=== PATIENT | female | born 1935 | race Caucasian/White ===

== ENCOUNTER 2016-10-14 13:58 | Emergency (ER) | payer MEDICARE, BC ==
[~2016-10-14] VITALS: Ht 154.9 cm; Wt 53.2 kg
[2016-10-14 16:01] LABS: HEMOGLOBIN 13.2 g/dL (11.7-16.4)
[2016-10-14 16:10] LABS: ASPARTATE AMINO TRANSFERASE 26 U/L (15-37); BLOOD UREA NITROGEN 17 mg/dL (7-18)
[2016-10-14 16:48] VITALS: BP 134/87
== END 2016-10-14 17:10 | disposition home or self-care (01) ==
LOC: ED 17:04
DX: L20.84 Intrinsic (allergic) eczema (principal); I10 Essential (primary) hypertension; Z86.718 Personal history of other venous thrombosis and embolism
CPT/HCPCS: 36415; 80053; 85025; 85610

== ENCOUNTER → 2017-05-13 | Outpatient (CLI) | payer MEDICARE, BC | END | disposition home or self-care (01) | LOC: CVU 11:58 | PROVIDERS: ATTEND Internal Medicine Cardiovascular Disease | DX: I08.1 Rheumatic disorders of both mitral and tricuspid valves (principal); I11.9 Hypertensive heart disease without heart failure; I83.813 Varicose veins of bilateral lower extremities with pain; E78.5 Hyperlipidemia, unspecified; Z86.718 Personal history of other venous thrombosis and embolism | CPT/HCPCS: 93306; 93970 ==

== ENCOUNTER → 2018-09-23 | Outpatient (CLI) | payer MEDICARE, BC | END | disposition home or self-care (01) | LOC: CFH 13:31 | PROVIDERS: ATTEND Obstetrics & Gynecology Female Pelvic Medicine and Reconstructive Surgery | DX: R92.2 Inconclusive mammogram (principal); N64.9 Disorder of breast, unspecified | CPT/HCPCS: 76377; 76642 ==

== ENCOUNTER 2019-02-07 08:36 | Emergency (ER) | payer MEDICARE, BC ==
[~2019-02-07] VITALS: Ht 157.5 cm; Wt 53.0 kg
--- NOTE | 2019-02-07 09:50 | NUR ---
TO ROOM FROM LOBBY. NAD/
--- NOTE | 2019-02-07 10:05 | NUR ---
assumed care of pt. attempted to enter room to assess pt, pt staets that she needs to use the bathroom. pt ambulated to BR without difficulty
--- NOTE | 2019-02-07 10:20 | NUR ---
pt c/o L foot pain after dropping a frozen sweet potato on it yesterday. pt states that she dropped it on a bunion on her foot by accident. pt hsa swelling to R foot below great toe. no open wounds noted. pt ambulatory. hx of mulitple DVT. CMS of R foot intact
[2019-02-07] MEDS ORDERED: WARF2.5T PO (10:26)
[2019-02-07] MEDS ORDERED: METO1TAB33 PO (10:26)
[2019-02-07] MEDS ORDERED: WARF5TAB PO (10:26)
[2019-02-07] MEDS ORDERED: AMLO10TA8 PO (10:26)
[2019-02-07] MEDS ORDERED: LOSA100T14 PO (10:26)
[2019-02-07] MEDS ORDERED: ATOR10TA9 PO (10:27)
--- NOTE | 2019-02-07 10:27 | NUR ---
med rec complete. pt reports that she also takes [id number] IU Vit D but there is not option for that on the med list
--- NOTE | 2019-02-07 10:30 | NUR ---
UD at bedside for eval
[2019-02-07 11:52] VITALS: BP 129/84
== END 2019-02-07 11:55 | disposition home or self-care (01) ==
LOC: ED 09:28
DX: S90.31XA Contusion of right foot, initial encounter (principal); I10 Essential (primary) hypertension; M79.671 Pain in right foot; Z86.718 Personal history of other venous thrombosis and embolism; W20.8XXA Other cause of strike by thrown, projected or falling object, initial encounter; Y93.89 Activity, other specified; Y92.009 Unspecified place in unspecified non-institutional (private) residence as the place of occurrence of the external cause; Y99.8 Other external cause status
CPT/HCPCS: 99284

== ENCOUNTER 2020-06-07 10:15 | Outpatient (CLI) | payer MEDICARE, BC ==
[~2020-06-07 10:15] MED LIST: AMLO-211 PO; ATOR10TA9 PO; LOSA100T14 PO; METO1TAB33 PO; WARF2.5T2 PO; WARF5TAB2 PO
== END 2020-06-07 23:59 | disposition home or self-care (01) ==
LOC: CFH 10:15
PROVIDERS: ATTEND Obstetrics & Gynecology Female Pelvic Medicine and Reconstructive Surgery
DX: Z12.39 Encounter for other screening for malignant neoplasm of breast (principal); R92.2 Inconclusive mammogram
CPT/HCPCS: 76641; 77063; 77067

== ENCOUNTER → 2020-12-29 | Outpatient (CLI) | payer MEDICARE, BC ==
[~2020-12-29] MED LIST changes: +OMNIPAQUE 350 MG/ML, 150 ML BOTTLE ONE
== END | disposition home or self-care (01) ==
LOC: EDSTATUS 12-21 14:45 → CFH 12:40
PROVIDERS: ATTEND Physician Assistant
DX: N28.1 Cyst of kidney, acquired (principal); R31.0 Gross hematuria; K80.20 Calculus of gallbladder without cholecystitis without obstruction
CPT/HCPCS: 74178; Q9967